=== PATIENT | female | born 1945 | race Hispanic/Latino ===

== ENCOUNTER 2017-12-16 11:18 | Day surgery (SDC) | payer MEDICARE ==
[~2017-12-16 11:18] MED LIST: IOPIDINE ONE; MYDRIACYL ONE; NACL 0.9% 1000 ML 1,000 ML IV SCH; NEOFRIN ONE
[2017-12-16] MEDS ORDERED: IOPIDINE OD ONE ×2 (11:28→12:30)
[2017-12-16] MEDS ORDERED: NEOFRIN OD ONE (11:28)
[2017-12-16] MEDS ORDERED: MYDRIACYL OD ONE (11:28)
[2017-12-16 13:30] VITALS: BP 144/73
== END 2017-12-16 12:32 | disposition home or self-care (01) ==
LOC: OR 11:18
PROVIDERS: ATTEND Specialist
DX: H26.491 Other secondary cataract, right eye (principal)

== ENCOUNTER 2017-12-23 11:18 | Day surgery (SDC) | payer MEDICARE ==
[~2017-12-23 11:18] MED LIST changes: -NACL 0.9% 1000 ML 1,000 ML IV SCH
[2017-12-23] MEDS ORDERED: NEOFRIN OS ONE (11:36)
[2017-12-23] MEDS ORDERED: IOPIDINE OS ONE ×2 (11:36→12:44)
[2017-12-23] MEDS ORDERED: MYDRIACYL OS ONE (11:36)
[2017-12-23 14:05] VITALS: BP 134/68
== END 2017-12-23 12:36 | disposition home or self-care (01) ==
LOC: OR 11:18
PROVIDERS: ATTEND Specialist
DX: H26.492 Other secondary cataract, left eye (principal); M19.90 Unspecified osteoarthritis, unspecified site; E78.00 Pure hypercholesterolemia, unspecified; K21.9 Gastro-esophageal reflux disease without esophagitis; Z98.49 Cataract extraction status, unspecified eye; Z90.12 Acquired absence of left breast and nipple; Z98.890 Other specified postprocedural states; Z85.3 Personal history of malignant neoplasm of breast